=== PATIENT | male | born 1975 | race Caucasian/White ===

== ENCOUNTER 2021-04-17 15:56 | Outpatient (REF) | payer MEDICAID, SELFPAY ==
[2021-04-17 21:31] LABS: Abs Immature Grans 0.02 10^3/uL (0.0-0.06); Absolute Basophil Count 0.02 10^3/uL (0.0-0.2); Absolute Eosinophil Count 0.09 10^3/uL (0.0-0.7); Absolute Lymphocyte Count 2.03 10^3/uL (1.2-3.4); Absolute Neutrophil Count 6.65 10^3/uL (1.2-6.7); Basophils % 0.2; HCT 47.3 % (40.0-50.0); HGB 15.7 g/dL (13.5-17.5); Immature Grans % 0.2; Lymphocytes % 21.6; MCH 29.7 pg (27.0-33.0); MCHC 33.2 % (32.0-36.0); MCV 89.4 fL (80-95); Monocytes % 6.4; Neutrophils % 70.6; Nucleated RBC 0 %; Platelet Count 292 10^3/uL (130-400); RBC 5.29 10^6/uL (4.36-5.78); RDW 12.6 % (11.8-14.1); RDW-SD 41.5 fL; WBC 9.41 10^3/uL (4.4-10.8)
[2021-04-17 21:47] LABS: ESR 5 mm/hr (0-15)
[2021-04-17 21:55] LABS: ALT 25 U/L (16-63); AST 19 U/L (15-37); Albumin 4.1 g/dL (3.4-5.0); Alkaline Phosphatase 61 U/L (46-116); Anion Gap 11.6 mmol/L (3-11); BUN 18 mg/dL (7-18); Bilirubin, Total 0.4 mg/dL (0.2-1.0); CO2 27.4 mmol/L (21.0-32.0); CREATININE 0.9 mg/dL (0.70-1.30); Calcium 8.8 mg/dL (8.5-10.1); Calculated LDL 107 mg/dL (<100); Chloride 105 mmol/L (98-107); Cholesterol 195 mg/dL (<200); Glucose 104 mg/dL (74-106); HDL Cholesterol 46 mg/dL (40-60); Potassium 4.5 mmol/L (3.5-5.1); Sodium 144 mmol/L (136-145); Total Protein 7.2 g/dL (6.4-8.2); Triglyceride 213 mg/dL (<150)
[2021-04-17 22:03] LABS: C-Reactive Protein 0.12 mg/dL (0.0-0.3)
[2021-04-18 17:07] LABS: Rheumatoid Factor 12.3 IU/mL (<12.0)
[2021-04-19 09:35] LABS: Cyclic Citrullinated Peptide <2.5 U/mL (<5.0)
[2021-04-19 15:28] LABS: HLA-B27 Result Negative
== END 2021-04-17 15:57 | disposition home or self-care (01) ==
LOC: NCHCN 15:56
PROVIDERS: PCP Registered Nurse; Visit Provider Registered Nurse
DX: M25.562 Pain in left knee (principal); M25.561 Pain in right knee; L40.9 Psoriasis, unspecified
CPT/HCPCS: 80053; 80061; 85652; 86200; 86812; 85025; 86140; 86431

== ENCOUNTER 2022-02-20 22:10 | Outpatient (REF) | payer MEDICAID, SELFPAY ==
[2022-02-20 22:26] LABS: Hemoglobin A1C 5.6 % (<5.7)
[2022-02-20 22:36] LABS: ALT 20 U/L (16-63); AST 14 U/L (15-37); Albumin 3.8 g/dL (3.4-5.0); Alkaline Phosphatase 67 U/L (46-116); Anion Gap 9.2 mmol/L (3-11); BUN 17 mg/dL (7-18); Bilirubin, Total 0.3 mg/dL (0.2-1.0); CO2 27.8 mmol/L (21.0-32.0); Calcium 8.9 mg/dL (8.5-10.1); Calculated LDL 121 mg/dL (<100); Chloride 105 mmol/L (98-107); Cholesterol 199 mg/dL (<200); Estimated GFR 94.59 (mL/min/1.73m2); Glucose 100 mg/dL (74-106); HDL Cholesterol 47 mg/dL (40-60); Potassium 4.1 mmol/L (3.5-5.1); Sodium 142 mmol/L (136-145); TSH 0.81 uIU/mL (0.36-3.74); Triglyceride 158 mg/dL (<150)
== END 2022-02-20 22:11 | disposition home or self-care (01) ==
LOC: NCHCN 22:10
PROVIDERS: PCP Registered Nurse; Visit Provider Registered Nurse
DX: Z51.81 Encounter for therapeutic drug level monitoring (principal)
CPT/HCPCS: 80053; 80061; 83036; 84443

== ENCOUNTER 2023-04-21 17:24 | Outpatient (REF) | payer MEDICAID, SELFPAY ==
[2023-04-21 20:17] LABS: Abs Immature Grans 0.04 10^3/uL (0.0-0.06); Absolute Basophil Count 0.02 10^3/uL (0.0-0.2); Absolute Eosinophil Count 0.04 10^3/uL (0.0-0.7); Absolute Lymphocyte Count 1.88 10^3/uL (1.2-3.4); Absolute Monocyte Count 0.53 10^3/uL (0.1-0.8); Absolute Neutrophil Count 6.42 10^3/uL (1.2-6.7); Basophils % 0.2; Eosinophils % 0.4; HCT 45.3 % (40.0-50.0); HGB 15.3 g/dL (13.5-17.5); Immature Grans % 0.4; Lymphocytes % 21.1; MCH 29.6 pg (27.0-33.0); MCHC 33.8 % (32.0-36.0); MCV 88 fL (80-95); MPV 10.5 fL (8.0-11.0); Monocytes % 5.9; Platelet Count 266 10^3/uL (130-400); RBC 5.17 10^6/uL (4.36-5.78); RDW 12.1 % (11.8-14.1); RDW-SD 39.4 fL; WBC 8.93 10^3/uL (4.4-10.8)
[2023-04-21 20:46] LABS: ALT 21 U/L (16-63); AST 22 U/L (15-37); Albumin 3.8 g/dL (3.4-5.0); Alkaline Phosphatase 74 U/L (46-116); Anion Gap 7.9 mmol/L (3-11); BUN 12 mg/dL (7-18); Bilirubin, Total 0.6 mg/dL (0.2-1.0); CO2 27.1 mmol/L (21.0-32.0); CREATININE 0.9 mg/dL (0.70-1.30); Calcium 9.1 mg/dL (8.5-10.1); Calculated LDL 126 mg/dL (<100); Chloride 103 mmol/L (98-107); Cholesterol 190 mg/dL (<200); Estimated GFR 106.67 (mL/min/1.73m2); Glucose 96 mg/dL (74-106); HDL Cholesterol 51 mg/dL (40-60); Sodium 138 mmol/L (136-145); TSH 1.14 uIU/mL (0.36-3.74); Total Protein 7.4 g/dL (6.4-8.2); Triglyceride 66 mg/dL (<150)
[2023-04-21 21:07] LABS: FREE T4 1.04 ng/dL (0.76-1.46)
== END 2023-04-21 17:25 | disposition home or self-care (01) ==
LOC: NCHCN 17:24
PROVIDERS: PCP Registered Nurse; Visit Provider Nurse Practitioner Family
DX: Z51.81 Encounter for therapeutic drug level monitoring (principal)
CPT/HCPCS: 80053; 80061; 84439; 84443; 85025

== ENCOUNTER 2024-05-03 16:39 | Outpatient (REF) | payer MEDICAID, SELFPAY ==
[2024-05-03 21:41] LABS: HCT 47.4 % (40.0-50.0); HGB 16.2 g/dL (13.5-17.5); MCH 30.5 pg (27.0-33.0); MCHC 34.2 % (32.0-36.0); MCV 89 fL (80-95); MPV 10.7 fL (8.0-11.0); Platelet Count 283 10^3/uL (130-400); RBC 5.31 10^6/uL (4.36-5.78); RDW 12.6 % (11.8-14.1); RDW-SD 41.7 fL; WBC 10.07 10^3/uL (4.4-10.8)
[2024-05-03 21:57] LABS: Hemoglobin A1C 5.3 % (<5.7)
[2024-05-03 22:08] LABS: ALT 30 U/L (16-63); AST 25 U/L (15-37); Alkaline Phosphatase 80 U/L (46-116); Anion Gap 9.9 mmol/L (3-11); BUN 14 mg/dL (7-18); Bilirubin, Total 0.46 mg/dL (0.2-1.0); CO2 28.1 mmol/L (21.0-32.0); Calcium 9.1 mg/dL (8.5-10.1); Calculated LDL 161 mg/dL (<100); Chloride 104 mmol/L (98-107); Cholesterol 233 mg/dL (<200); Estimated GFR 93.42 (mL/min/1.73m2); Glucose 94 mg/dL (74-106); HDL Cholesterol 49 mg/dL (40-60); Sodium 142 mmol/L (136-145); TSH 1.66 uIU/mL (0.36-3.74); Total Protein 7.6 g/dL (6.4-8.2); Triglyceride 119 mg/dL (<150)
[2024-05-04 19:04] LABS: PSA, Screening 0.4 ng/mL (<=2.5)
== END 2024-05-03 16:40 | disposition home or self-care (01) ==
LOC: NCHCN 16:39
PROVIDERS: PCP Registered Nurse; Visit Provider Nurse Practitioner Family
DX: Z51.81 Encounter for therapeutic drug level monitoring (principal); Z12.5 Encounter for screening for malignant neoplasm of prostate
CPT/HCPCS: 80053; 80061; 84153; 85027; 83036; 84443

== ENCOUNTER 2025-04-11 10:57 | Outpatient (REF) | payer MEDICAID, SELFPAY ==
[2025-04-11 15:33] LABS: HCT 46.7 % (40.0-50.0); HGB 16.1 g/dL (13.5-17.5); MCH 30.0 pg (27.0-33.0); MCHC 34.5 % (32.0-36.0); MCV 87 fL (80-95); MPV 10.7 fL (8.0-11.0); Platelet Count 340 10^3/uL (130-400); RBC 5.37 10^6/uL (4.36-5.78); RDW 13.0 % (11.8-14.1); RDW-SD 41.2 fL; WBC 9.12 10^3/uL (4.4-10.8)
[2025-04-11 15:35] LABS: ALT 25 U/L (10-49); AST 20 U/L (<34); Albumin 4.4 g/dL (3.4-5.0); Alkaline Phosphatase 70 U/L (46-116); Anion Gap 5.5 mmol/L (3-11); BUN 14 mg/dL (9-23); Bilirubin, Total 0.60 mg/dL (0.2-1.2); CO2 27.5 mmol/L (20.0-31.0); Calcium 9.2 mg/dL (8.3-10.6); Chloride 106 mmol/L (98-107); Cholesterol 183 mg/dL (<200); Glucose 84 mg/dL (74-106); HDL Cholesterol 44 mg/dL (>40); Potassium 4.1 mmol/L (3.5-5.1); Sodium 139 mmol/L (136-145); Total Protein 7.1 g/dL (5.7-8.2)
[2025-04-11 19:29] LABS: Hemoglobin A1C 5.2 % (<5.7)
[2025-04-11 22:56] LABS: Hepatitis C Ab w Rflx HCV PCR Negative (Negative)
[2025-04-11 22:58] LABS: HIV-1/2 Ag & Ab Screen Negative (Negative)
== END 2025-04-11 10:58 | disposition home or self-care (01) ==
LOC: NCHCN 10:57
PROVIDERS: PCP Registered Nurse; Visit Provider Nurse Practitioner Family
DX: Z79.899 Other long term (current) drug therapy (principal); Z11.3 Encounter for screening for infections with a predominantly sexual mode of transmission; Z13.220 Encounter for screening for lipoid disorders
CPT/HCPCS: 80053; 80061; 85027; 86803; 87389; 83036